=== PATIENT | male | born 2005 | race Hispanic/Latino ===

== ENCOUNTER 2023-02-11 05:51 | Emergency (ER) | payer OTHER, BC ==
[~2023-02-11] VITALS: Ht 165.1 cm; Wt 95.3 kg
[2023-02-11] MEDS ORDERED: KETOROLAC TROMETHAMINE 60 MG/2 ML VIAL IM ONE (06:15)
== END 2023-02-11 08:28 | disposition home or self-care (01) ==
LOC: ER 05:55
DX: S20.211A Contusion of right front wall of thorax, initial encounter (principal); V49.3XXA Car occupant (driver) (passenger) injured in unspecified nontraffic accident, initial encounter
CPT/HCPCS: 71101; 99283; J1885